=== PATIENT | female | born 1995 | race Caucasian/White ===

== ENCOUNTER 2016-07-17 21:13 | Inpatient (IN) | payer OTHER ==
[~2016-07-17] VITALS: Ht 160 cm; Wt 61.2 kg
--- NOTE | ~2016-07-17 | FD ---
ADMIT: 07/17/2016 RM/LOC: 227 [facility] MR#: [id number] [address] ALONDRA NUÑEZ [address] [place] [id number] Final Diagnosis SEX: F AGE: 20 : 1995 ADMISSION DATE: 07/17/2016 DISCHARGE DATE: 07/20/2016 FINAL DIAGNOSIS: 1. Status post spontaneous vaginal delivery. 2. Anemia during . 3. Rhesus negative status. 4. History of thrombocytopenia. 5. Sinus infection, present on admission. PROCEDURE: 1. Spontaneous vaginal delivery. 2. Removal of epidural catheter. Bridget Campbell MD/ presley JOB #: [id number] CC: Bridget Campbell MD, Attending Physician Bridget Campbell MD, Family Physician
[2016-07-21] MEDS ORDERED: PRENATAL VIT1 TAB PO (13:00)
[2016-07-21] MEDS ORDERED: AMOXIL-DPS500 MG PO (13:01)
[2016-07-21] MEDS ORDERED: NIPPLECREAM TP (13:01)
[2016-07-21] MEDS ORDERED: IRON325 M1 PO (13:01)
[2016-07-21] MEDS ORDERED: MOTRIN-DPS800 MG PO (13:01)
--- NOTE | 2016-08-05 13:13 | HP ---
ADMIT: 07/17/2016 RM/LOC: 227 [facility] MR#: [id number] [address] ALONDRA NUÑEZ [address] [place] [id number] History and Physical SEX: F AGE: 20 : 1995 DATE OF SERVICE: 07/17/2016 HISTORY OF PRESENT ILLNESS: Briefly, the patient is a 20-year-old, 2, para 1-0-0-1, with an intrauterine at 37 and 3/7 weeks by a 10-week ultrasound, who presented to Labor and Delivery with complaints of uterine contractions. The patient changed her cervix from 4 to 6 cm over the course of the night and was therefore admitted for active labor. PAST MEDICAL HISTORY: 1. Anemia complicating . 2. History of thrombocytopenia. 3. Rhesus negative status. 4. Sinus infection present on admission. PAST SURGICAL HISTORY: None. FAMILY HISTORY: None. SOCIAL HISTORY: The patient denies alcohol, tobacco, or illicit drug use. She is single, but the father of the baby, Magdaleno, is involved. 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 MEDICATIONS: 1. vitamins 1 tablet p.o. daily. 2. Ferrous gluconate 1 tablet p.o. daily. 3. Amoxicillin 500 mg p.o. b.i.d. ALLERGIES: NO KNOWN MEDICAL ALLERGIES. REVIEW OF SYSTEMS: Significant for uterine contractions as described in history of present illness. The patient denies vaginal bleeding, loss of fluid, or decreased movement. [facility]STETR[facility] LABORATORIES: Blood type O negative, antibody screen negative, RPR nonreactive, rubella immune, HIV negative, gonorrhea and chlamydia negative. Hepatitis B surface antigen negative. Quad screen negative. Diabetic screen 114. Group B strep negative. Pap smear negative for intraepithelial lesion or malignancy. PHYSICAL EXAMINATION: GENERAL: Well-developed, well-nourished, white female, alert and oriented x3 in no acute distress. VITAL SIGNS: On admission, blood pressure 122/83, pulse 80, respirations 16, temperature 96.7 degrees Fahrenheit, height 5 feet 3 inches, and weight 135 pounds. HEENT: Head is normocephalic and atraumatic. Pupils are equal and round. Extraocular muscles are intact. NECK: Supple. Trachea midline. Thyroid not palpable. HEART: Regular rate and rhythm. LUNGS: Clear to auscultation bilaterally. ADMIT: 07/17/2016 RM/LOC: 227 [facility] MR#: [id number] [address] [facility] [address] History and Physical SEX: F AGE: 20 : 1995 ABDOMEN: Soft, nontender, gravid. EXTREMITIES: No clubbing, cyanosis, or edema. NEUROLOGIC: Cranial nerves II through XII grossly intact. 2+ deep tendon reflexes noted. PELVIC: Sterile vaginal examination by the nurse on admission reveals the cervix to be 4 cm dilated, 60% effaced, +2 station. heart tones are in the 120s with 15 x 15 accelerations, moderate long-term variability, and no decelerations. Irregular uterine contractions are initially noted on the monitor. ASSESSMENT AND PLAN: 1. This is a 20-year-old, 2, para 1-0-0-1, with an intrauterine at 37 and 3/7 weeks by a 10-week ultrasound, who presents to Labor and Delivery in active labor. 2. Group B strep negative. No prophylaxis will be provided. 3. Fetus is vertex and overall reassuring. Bridget Campbell MD/ josse JOB #: [id number] CC: Bridget Campbell, Attending Physician Bridget Campbell, Family Physician
--- NOTE | 2016-08-05 13:17 | OR ---
ADMIT: 07/17/2016 RM/LOC: 227 [facility] MR#: [id number] [id number] [address] ALONDRA NUÑEZ [address] [place] [id number] Operative/Delivery Room Report SEX: F AGE: 20 : 1995 SURGERY DATE: 07/18/2016 SURGEON: Bridget Campbell MD The patient delivered a viable female by spontaneous vaginal delivery at 1701 hours. A nuchal cord x1 was reduced. The infant was placed on the mother's abdomen, and the cord was doubly clamped and cut. The was handed off to the awaiting nurse. Cord blood was sent. The 's weight was 2750 g. Apgars were 8 and 9. The placenta then delivered spontaneously intact with a three-vessel cord. Twenty units of Pitocin were infused with intravenous fluids. An examination of the perineum revealed no lacerations. Estimated blood loss for the entire procedure was 200 mL. The patient and are in her room in stable condition. The epidural catheter was removed intact without difficulty at the conclusion of the procedure. Bridget Campbell MD/ josse JOB #: [id number] CC: Bridget Campbell MD, Attending Physician Bridget Campbell MD, Family Physician
== END 2016-07-20 13:18 | disposition home or self-care (01) | DRG 775 ==
LOC: BC 21:13 → 2LDRP 21:13 → BC 08-05 08:00
PROVIDERS: ADMIT Obstetrics & Gynecology
PROC: 10907ZC Drainage of Amniotic Fluid, Therapeutic from Products of Conception, Via Natural or Artificial Opening (ICD-10-PCS; principal; 2016-07-18)
PROC: 10E0XZZ Delivery of Products of Conception, External Approach (ICD-10-PCS; principal; 2016-07-18)
PROC: 3E0234Z Introduction of Serum, Toxoid and Vaccine into Muscle, Percutaneous Approach (ICD-10-PCS; 2016-07-19)
DX: O75.89 Other specified complications of labor and delivery (principal); D64.9 Anemia, unspecified; O99.02 Anemia complicating childbirth; O69.81X0 Labor and delivery complicated by cord around neck, without compression, not applicable or unspecified; O99.52 Diseases of the respiratory system complicating childbirth; J32.9 Chronic sinusitis, unspecified; Z86.2 Personal history of diseases of the blood and blood-forming organs and certain disorders involving the immune mechanism; Z3A.37 37 weeks gestation of pregnancy; Z37.0 Single live birth